=== PATIENT | male | born 1970 | race Caucasian/White ===

== ENCOUNTER 2017-12-20 19:44 | Emergency (ER) | payer OTHER ==
[2017-12-20] MEDS ORDERED: Diphtheria,Pertussis(Acell),Tetanus Vaccine 0.5 ML SDV IM ONE (20:19)
--- NOTE | 2017-12-20 20:39 | EDM.PDOC ---
<Tania Fox M - Last Filed: 12/20/17 20:39> ED HPI GENERAL MEDICAL PROBLEM - General Chief Complaint: Laceration Stated Complaint: CUT POINTER FINGER ON RIGHT HAND Time Seen by Provider: 12/20/17 20:00 Source of Information: Reports: Patient - History of Present Illness INITIAL COMMENTS - FREE TEXT/NARRATIVE: Patient arrives at the ED today with complaint of right index finger laceration. Laceration is approximately 1.5 cm in length and is located along the radial aspect of the middle phalanx. Injury occurred 30 minutes prior to arrival while he was working with a utility knife. The patient is left handed. Patient does not recall when his tetanus vaccination was last updated. Onset: Today Onset Date: 12/20/17 Onset Time: 18:30 Location: Reports: Upper Extremity, Right (index finger, over radial side of middle phalanx) Quality: Reports: Sharp Severity: Moderate Associated Symptoms: Reports: No Other Symptoms - Related Data Allergies Allergy/AdvReac Type Severity Reaction Status Date / Time No Known Allergies Allergy Verified 12/20/17 19:59 Past Medical History Cardiovascular History: Reports: Hypertension Social & Family History - Tobacco Use Smoking Status *Q: Never Smoker - Caffeine Use Caffeine Use: Reports: Soda ED ROS GENERAL - Review of Systems Review Of Systems: See Below Constitutional: Reports: No Symptoms Respiratory: Reports: No Symptoms Cardiovascular: Reports: No Symptoms Skin: Reports: Other (right index finger laceration) ED EXAM, SKIN/RASH Exam: See Below Exam Limited By: No Limitations General Appearance: Alert, WD/WN, No Apparent Distress Respiratory/Chest: No Respiratory Distress Cardiovascular: Normal Peripheral Pulses Extremities: Normal Range of Motion, Other (Right index finger approximately 1.5 cm laceration over the radial aspect of the middle phalanx. Laceration is at sharp angle, approxiately at a 30 degree angle to the side finger. Laceration does not appear to be more than 1-2 mm in depth Motor and sensory innervation intact. Patient is able to flex/ext/abd/adduct against resistance. No tendinous injury is appreciated. No errythema surrounding the injury. No purulent drainage from the incision. No streaking.) Course - Vital Signs Last Recorded V/S: Last Vital Signs Temp 97.1 F 12/20/17 19:57 Pulse 73 12/20/17 19:57 Resp 16 12/20/17 19:57 BP 132/99 H 12/20/17 19:57 Pulse Ox 100 12/20/17 19:57 - Orders/Labs/Meds Orders: Active Orders 24 hr Category Date Time Status Vaccines to be Administered [RC] PER UNIT ROUTINE Care 12/20/17 20:19 Active Meds: Medications Discontinued Medications Generic Name Dose Route Start Last Admin Trade Name Satish PRN Reason Stop Dose Admin Diphtheria/Tetanus/Acell Pertussis 0.5 ml 12/20/17 20:19 12/20/17 20:32 Adacel IM 12/20/17 20:20 0.5 ml .ONCE ONE Administration Departure - Departure Time of Disposition: 20:29 Disposition: Home, Self-Care 01 Condition: Good Clinical Impression: Laceration - Discharge Information *PRESCRIPTION DRUG MONITORING PROGRAM REVIEWED*: Not Applicable *COPY OF PRESCRIPTION DRUG MONITORING REPORT IN PATIENT MIREILLE: Not Applicable Instructions: Laceration Care, Adult, [id number], Stitches, [place], or Adhesive Wound Closure, [id number] Referrals: Gary Quintanilla MD [Primary Care Provider] - Forms: ED Department Discharge Additional Instructions: The adhesive glue applied to the laceration on your right index finger will protect the laceration. However, do not submerge the injury in dirty water. It is fine to wash the finger under running water or in the shower. Do not peel the glue off of the laceration for at least one week. After one week, the glue typically begins to peel along the edges. Do not apply antibiotic ointment over the top of the glue as this will cause it to break down prematurely. Please put a bandage over the injury if you are planning on working in the dirt or putting your hands in work gloves. Please seek medical care if you notice any signs of infection such as, fever, increasing redness, heat, swelling, or cloudy drainage from the injury. Please return to the ER if your symptoms change or worsen. - My Orders Last 24 Hours: My Active Orders 12/20/17 20:19 Vaccines to be Administered [RC] PER UNIT ROUTINE - Assessment/Plan Last 24 Hours: My Active Orders 12/20/17 20:19 Vaccines to be Administered [RC] PER UNIT ROUTINE <Johnna Lagos - Last Filed: 12/20/17 23:11> ED HPI GENERAL MEDICAL PROBLEM - General Source of Information: Reports: Patient History Limitations: Reports: No Limitations - History of Present Illness INITIAL COMMENTS - FREE TEXT/NARRATIVE: I have seen the patient and agree with the HPI as documented by JAJA Fajardo. Patient is left handed. ED ROS GENERAL - Review of Systems Musculoskeletal: Reports: Other (no decreased ROM ) Neurological: Denies: Numbness, Tingling ED EXAM, SKIN/RASH Peripheral Pulses: 2+: Radial (R) Extremities: Normal Capillary Refill, Other Neurological: Alert, Oriented, Normal Cognition Psychiatric: Normal Affect, Normal Mood Skin: Warm, Dry, Wound/Incision Location, Skin: Upper Extremity, Right Characteristics: Linear ED SKIN PROCEDURES - Laceration/Wound Repair Right Digit - 2nd (Index) Lac/Wound length In cm: 1.5 Appearance: Subcutaneous, Linear Distal NVT: Neuro & Vascular Intact, No Tendon Injury Skin Prep: Chlorhexidine (Hibiciens), Saline Closed with: Dermabond Tetanus Status Addressed: Yes Complications: No Course - Re-Assessments/Exams Free Text/Narrative Re-Assessment/Exam: 12/20/17 20:20 I have seen the patient and agree with the HPI, ROS and PE as documented by JAJA Fajardo. Wound closed by Tania with dermabond. Patient tolerated well. No complications. Tetanus up dated Discharge instructions as documented.
== END 2017-12-20 20:50 | disposition home or self-care (01) ==
LOC: JD.ED 19:44
DX: S61.210A Laceration without foreign body of right index finger without damage to nail, initial encounter (principal); I10 Essential (primary) hypertension; W26.0XXA Contact with knife, initial encounter; Z23 Encounter for immunization
CPT/HCPCS: 12001; 90471; 90715; 99283-25

== ENCOUNTER 2020-03-28 12:42 | Emergency (ER) | payer OTHER ==
[2020-03-28] MEDS ORDERED: Sodium Chloride 0.9% 10 ML Syringe FLUSH PRN (13:23)
--- NOTE | 2020-03-28 14:41 | EDM.PDOC ---
ED HPI GENERAL MEDICAL PROBLEM - General Chief Complaint: Cardiovascular Problem Stated Complaint: DIZZY Time Seen by Provider: 03/28/20 12:57 Source of Information: Reports: Patient History Limitations: Reports: No Limitations - History of Present Illness INITIAL COMMENTS - FREE TEXT/NARRATIVE: The patient presents with near syncope. He said he feels lightheaded. This started yesterday and it happened 5 times. Twice today it felt like he was going to pass out and he was driving. He has been having headaches for a few weeks and his blood pressure has been elevated. He also has been dealing with a chronic cough since last May. He was put on claritin and that is better. He has no fever, chills, chest pain, shortness of breath, abdominal pain, nausea or vomiting. He has no numbness or weakness. He has no medical problems. Onset: Gradual Duration: Day(s): Location: Reports: Head Quality: Reports: Ache Severity: Moderate Improves with: Reports: None Worsens with: Reports: None Associated Symptoms: Reports: Headaches. Denies: Chest Pain, Cough, Fever/Chills, Nausea/Vomiting, Shortness of Breath - Related Data Allergies Allergy/AdvReac Type Severity Reaction Status Date / Time No Known Allergies Allergy Verified 12/20/17 19:59 Home Meds: Home Meds . [No Known Home Meds] 03/28/20 [History] Past Medical History - Past Health History Medical/Surgical History: Denies Medical/Surgical History Cardiovascular History: Reports: Hypertension Gastrointestinal History: Reports: GERD Genitourinary History: Reports: Other (See Below) Other Genitourinary History: vasectomy - Infectious Disease History Infectious Disease History: Reports: Novel Coronavirus - Past Surgical History Male Surgical History: Reports: Vasectomy Social & Family History - Tobacco Use Tobacco Use Status *Q: Never Tobacco User Second Hand Smoke Exposure: No - Caffeine Use Caffeine Use: Reports: Soda - Alcohol Use Days Per Week of Alcohol Use: 2 Number of Drinks Per Day: 10 Total Drinks Per Week: 20 - Recreational Drug Use Recreational Drug Use: No ED ROS GENERAL - Review of Systems Review Of Systems: See Below Constitutional: Reports: No Symptoms HEENT: Reports: No Symptoms Respiratory: Reports: No Symptoms Cardiovascular: Reports: Lightheadedness Endocrine: Reports: No Symptoms GI/Abdominal: Reports: No Symptoms : Reports: No Symptoms Musculoskeletal: Reports: No Symptoms ED EXAM, GENERAL - Physical Exam Exam: See Below Exam Limited By: No Limitations General Appearance: Alert, No Apparent Distress Ears: Normal External Exam Nose: Normal Inspection Head: Atraumatic, Normocephalic Neck: Normal Inspection Respiratory/Chest: No Respiratory Distress, Lungs Clear, Normal Breath Sounds Cardiovascular: Regular Rate, Rhythm, No Edema, No Murmur GI/Abdominal: Soft, Non-Tender, No Organomegaly, No Mass Back Exam: Normal Inspection Extremities: Normal Inspection Neurological: Alert, Oriented, No Motor/Sensory Deficits #1 Interpretation EKG Date: 03/28/20 Time: 14:02 Rhythm: NSR Rate (Beats/Min): 70 Forbes: Normal P-Wave: Present QRS: Normal ST-T: Normal QT: Normal Course - Vital Signs Last Recorded V/S: Last Vital Signs Temp 97.4 F 03/28/20 12:53 Pulse 81 03/28/20 12:53 Resp 16 03/28/20 12:53 BP 166/99 H 03/28/20 12:53 Pulse Ox 100 03/28/20 12:53 Orthostatic Blood Pressure [ 159/108 Standing] Orthostatic Blood Pressure [ 162/112 Sitting] Orthostatic Blood Pressure [ 156/108 Supine] - Orders/Labs/Meds Orders: Active Orders 24 hr Category Date Time Status Cardiac Monitoring [RC] . DIRECTED Care 03/28/20 13:23 Active EKG Documentation Completion [RC] STAT Care 03/28/20 13:24 Active Holter Monitor 48 Hours [RC] .PRN Care 03/28/20 14:46 Ordered Peripheral IV Care [RC] . DIRECTED Care 03/28/20 13:24 Active Head wo Cont [CT] Stat Exams 03/28/20 13:24 Taken Sodium Chloride 0.9% [Saline Flush] Med 03/28/20 13:23 Active 10 ml FLUSH ASDIRECTED PRN Peripheral IV Insertion Adult [OM.PC] Stat Oth 03/28/20 13:23 Ordered Medication Orders Sodium Chloride (Saline Flush) 10 ml FLUSH ASDIRECTED PRN PRN Reason: Keep Vein Open Labs: Laboratory Tests 03/28/20 03/28/20 Range/Units 13:56 13:56 WBC 6.07 (4.23-9.07) K/mm3 RBC 5.16 (4.63-6.08) M/mm3 Hgb 15.0 (13.7-17.5) gm/dl Hct 46.2 (40.1-51.0) % MCV 89.5 (79.0-92.2) fl MCH 29.1 (25.7-32.2) pg MCHC 32.5 (32.2-35.5) g/dl RDW Std Deviation 45.1 H (35.1-43.9) fL Plt Count 271 (163-337) K/mm3 MPV 9.7 (9.4-12.3) fl Neut % (Auto) 71.2 H (34.0-67.9) % Lymph % (Auto) 17.1 L (21.8-53.1) % [place] % (Auto) 10.2 (5.3-12.2) % Eos % (Auto) 0.8 (0.8-7.0) Baso % (Auto) 0.5 (0.1-1.2) % Neut # (Auto) 4.32 (1.78-5.38) K/mm3 Lymph # (Auto) 1.04 L (1.32-3.57) K/mm3 [place] # (Auto) 0.62 (0.30-0.82) K/mm3 Eos # (Auto) 0.05 (0.04-0.54) K/mm3 Baso # (Auto) 0.03 (0.01-0.08) K/mm3 Sodium 140 (136-145) mEq/L Potassium 4.2 (3.5-5.1) mEq/L Chloride 103 (98-107) mEq/L Carbon Dioxide 30 (21-32) mEq/L Anion Gap 11.2 (5-15) BUN 18 (7-18) mg/dL Creatinine 1.1 (0.7-1.3) mg/dL Est Cr Clr Drug Dosing 80.34 mL/min Estimated GFR (MDRD) > 60 (>60) mL/min BUN/Creatinine Ratio 16.4 (14-18) Glucose 99 (74-106) mg/dL Calcium 9.1 (8.5-10.1) mg/dL Magnesium 2.1 (1.8-2.4) mg/dl Total Bilirubin 0.5 (0.2-1.0) mg/dL AST 19 (15-37) U/L ALT 34 (16-63) U/L Alkaline Phosphatase 72 (46-116) U/L Troponin I < 0.017 (0.00-0.056) ng/mL Total Protein 7.2 (6.4-8.2) g/dl Albumin 3.8 (3.4-5.0) g/dl Globulin 3.4 gm/dL Albumin/Globulin Ratio 1.1 (1-2) Meds: Medications Generic Name Dose Route Start Last Admin Trade Name Freq PRN Reason Stop Dose Admin Sodium Chloride 10 ml 03/28/20 13:23 Saline Flush FLUSH ASDIRECTED PRN Keep Vein Open - Re-Assessments/Exams Free Text/Narrative Re-Assessment/Exam: 03/28/20 14:41 I ordered an EKG, CT of his head and labs. His EKG shows a NSR with no acute changes. The CT of his head shows no acute intracranial abnormality. Prominent atrophic changes in the frontal and anterior temporal lobes given patient's stated age. 03/28/20 14:47 I will get him on a holter monitor for 48 hours and have him follow up with Dr Kim. Departure - Departure Time of Disposition: 14:50 Disposition: Home, Self-Care 01 Condition: Good Clinical Impression: Near syncope Referrals: Gary Quintanilla MD [Primary Care Provider] - 1 Week Forms: ED Department Discharge Additional Instructions: Wear the holter monitor for 48 hours. Drink plenty of fluids. Follow up with Dr Kim within a week. Please return if you are worse. Sepsis Event Note (ED) - Evaluation Sepsis Screening Result: No Definite Risk - Focused Exam Vital Signs: Vital Signs Temp Pulse Resp BP Pulse Ox 03/28/20 12:53 97.4 F 81 16 166/99 H 100 - My Orders Last 24 Hours: My Active Orders 03/28/20 13:23 Cardiac Monitoring [RC] . DIRECTED Sodium Chloride 0.9% [Saline Flush] 10 ml FLUSH ASDIRECTED PRN Peripheral IV Insertion Adult [OM.PC] Stat 03/28/20 13:24 EKG Documentation Completion [RC] STAT Peripheral IV Care [RC] . DIRECTED Head wo Cont [CT] Stat 03/28/20 14:46 Holter Monitor 48 Hours [RC] .PRN - Assessment/Plan Last 24 Hours: My Active Orders 03/28/20 13:23 Cardiac Monitoring [RC] . DIRECTED Sodium Chloride 0.9% [Saline Flush] 10 ml FLUSH ASDIRECTED PRN Peripheral IV Insertion Adult [OM.PC] Stat 03/28/20 13:24 EKG Documentation Completion [RC] STAT Peripheral IV Care [RC] . DIRECTED Head wo Cont [CT] Stat 03/28/20 14:46 Holter Monitor 48 Hours [RC] .PRN
== END 2020-03-28 15:30 | disposition home or self-care (01) ==
LOC: JD.ED 12:42
DX: R55 Syncope and collapse (principal); I10 Essential (primary) hypertension
CPT/HCPCS: 36415; 70450; 80053; 83735; 84484; 85025; 93005; 93010; 93225; 93226; 99283; 99284-25

== ENCOUNTER 2020-08-20 11:42 | Emergency (ER) | payer OTHER ==
--- NOTE | 2020-08-20 12:19 | EDM.PDOC ---
ED HPI GENERAL MEDICAL PROBLEM - General Chief Complaint: Syncope Stated Complaint: DIZZY Time Seen by Provider: 08/20/20 12:04 Source of Information: Reports: Patient, Family (), Old Records, RN Notes Reviewed (Vital signs: Pulse 76 bpm, temperature is 96.9 F, respiratory rate 18 breaths/min, blood pressure 136/96, O2 sats 92% on room air) History Limitations: Reports: No Limitations - History of Present Illness INITIAL COMMENTS - FREE TEXT/NARRATIVE: Patient is a 49-year-old male who presents to the ED for sudden onset dizziness. Patient notes that he had his first episode this morning at around 7:30 AM, and this only lasted about 30 seconds. Patient went about his day and felt fine until roughly 11:15 AM, when he began to have world spinning dizziness, associa sabina nausea and vomiting with this. Patient notes that he feels dizzy even at rest, but it does seem to worsen when he changes positions at all. He said no fevers or chills, shortness of breath with this. notes that he does have a chronic cough that has been working with pulmonology for that is thought to be asthma, has been working on blood pressure issues Dr. Kim. She brings an tracy that shows his last 5-day blood pressure readings, and these have all been in the 120s systolically. Patient denies any sort of chest pains or palpitation type sensations in his chest when these issues hit. He notes that it really just seems to be the dizziness. - Related Data Allergies Allergy/AdvReac Type Severity Reaction Status Date / Time No Known Allergies Allergy Verified 12/20/17 19:59 Home Meds: Home Meds Budesonide/Formoterol Fumarate [Symbicort 160-4.5 Mcg Inhaler] 2 puff INH BID 08/20/20 [History] LORazepam [Ativan] 1 mg PO TID PRN #12 tab 08/20/20 [Rx] Losartan [Cozaar] 25 mg PO BID 08/20/20 [History] Metoclopramide [Reglan] 5 mg PO TID PRN #21 tab 08/20/20 [Rx] predniSONE 20 mg PO ASDIRECTED #15 tab 08/20/20 [Rx] Past Medical History - Past Health History Medical/Surgical History: Denies Medical/Surgical History Cardiovascular History: Reports: Hypertension Gastrointestinal History: Reports: GERD Genitourinary History: Reports: Other (See Below) Other Genitourinary History: vasectomy - Infectious Disease History Infectious Disease History: Reports: Novel Coronavirus - Past Surgical History Male Surgical History: Reports: Vasectomy Social & Family History - Caffeine Use Caffeine Use: Reports: Soda ED ROS GENERAL - Review of Systems Review Of Systems: Comprehensive ROS is negative, except as noted in HPI. ED EXAM, DIZZINESS - Physical Exam Exam: See Below Exam Limited By: No Limitations General Appearance: Alert, WD/WN, No Apparent Distress Eye Exam: Bilateral Eye: EOMI, Nystagmus (several tics of nystagmus in all EOM; does not seem to worsen the dizziness sensations) Nystagmus: reproducible, constant, short duration Ears: Normal External Exam, Normal Canal, Hearing Grossly Normal, Normal TMs Throat/Mouth: Normal Inspection, Normal Lips, Normal Teeth, Normal Gums, Normal Oropharynx, Normal Voice, No Airway Compromise Head Exam: Atraumatic, Normocephalic Vertigo: constant Neck: Normal Inspection, Supple, Non-Tender, Full Range of Motion Respiratory/Chest: No Respiratory Distress, Lungs Clear, Normal Breath Sounds, No Accessory Muscle Use, Chest Non-Tender Cardiovascular: Normal Peripheral Pulses, Regular Rate, Rhythm, No Edema GI/Abdominal: Normal Bowel Sounds, Soft, Non-Tender, No Distention, No Mass Neurological: Alert, Normal Mood/Affect, Normal Dorsiflexion, Normal Plantar Flexion, No Motor/Sensory Deficits, Oriented x 3 Extremities: Normal Inspection, Normal Capillary Refill Psychiatric: Normal Affect, Normal Mood Skin Exam: Warm, Dry, Intact, Normal Color, No Rash Course - Vital Signs Last Recorded V/S: Last Vital Signs Temp 96.9 F 08/20/20 11:57 Pulse 76 08/20/20 11:57 Resp 18 08/20/20 11:57 BP 136/96 H 08/20/20 11:57 Pulse Ox 92 L 08/20/20 11:57 - Orders/Labs/Meds Orders: Active Orders 24 hr Category Date Time Status Peripheral IV Care [RC] . DIRECTED Care 08/20/20 12:16 Ordered Sodium Chloride 0.9% [Saline Flush] Med 08/20/20 12:16 Active 10 ml FLUSH ASDIRECTED PRN Peripheral IV Insertion Adult [OM.PC] Routine Oth 08/20/20 12:16 Ordered Medication Orders Sodium Chloride (Sodium Chloride 0.9% 10 Ml Syringe) 10 ml FLUSH ASDIRECTED PRN PRN Reason: Keep Vein Open Last Admin: 08/20/20 12:29 Dose: 10 ml Documented by: HERMMIC Labs: Laboratory Tests 08/20/20 08/20/20 Range/Units 12:27 12:27 WBC 6.43 (4.23-9.07) K/mm3 RBC 4.79 (4.63-6.08) M/mm3 Hgb 14.3 (13.7-17.5) gm/dl Hct 43.0 (40.1-51.0) % MCV 89.8 (79.0-92.2) fl MCH 29.9 (25.7-32.2) pg MCHC 33.3 (32.2-35.5) g/dl RDW Std Deviation 43.2 (35.1-43.9) fL Plt Count 244 (163-337) K/mm3 MPV 9.5 (9.4-12.3) fl Neut % (Auto) 71.1 H (34.0-67.9) % Lymph % (Auto) 17.4 L (21.8-53.1) % [place] % (Auto) 9.8 (5.3-12.2) % Eos % (Auto) 0.9 (0.8-7.0) Baso % (Auto) 0.5 (0.1-1.2) % Neut # (Auto) 4.57 (1.78-5.38) K/mm3 Lymph # (Auto) 1.12 L (1.32-3.57) K/mm3 [place] # (Auto) 0.63 (0.30-0.82) K/mm3 Eos # (Auto) 0.06 (0.04-0.54) K/mm3 Baso # (Auto) 0.03 (0.01-0.08) K/mm3 Sodium 141 (136-145) mEq/L Potassium 4.0 (3.5-5.1) mEq/L Chloride 106 (98-107) mEq/L Carbon Dioxide 25 (21-32) mEq/L Anion Gap 14.0 (5-15) BUN 25 H (7-18) mg/dL Creatinine 1.1 (0.7-1.3) mg/dL Est Cr Clr Drug Dosing 80.34 mL/min Estimated GFR (MDRD) > 60 (>60) mL/min BUN/Creatinine Ratio 22.7 H (14-18) Glucose 121 H (74-106) mg/dL Calcium 8.7 (8.5-10.1) mg/dL Total Bilirubin 0.6 (0.2-1.0) mg/dL AST 24 (15-37) U/L ALT 40 (16-63) U/L Alkaline Phosphatase 59 (46-116) U/L Total Protein 7.3 (6.4-8.2) g/dl Albumin 4.0 (3.4-5.0) g/dl Globulin 3.3 gm/dL Albumin/Globulin Ratio 1.2 (1-2) Meds: Medications Generic Name Dose Route Start Last Admin Trade Name Freq PRN Reason Stop Dose Admin Sodium Chloride 10 ml 08/20/20 12:16 08/20/20 12:29 Sodium Chloride 0.9% 10 Ml Syringe FLUSH 10 ml ASDIRECTED PRN Administration Keep Vein Open Discontinued Medications Generic Name Dose Route Start Last Admin Trade Name Freq PRN Reason Stop Dose Admin Diazepam 5 mg 08/20/20 13:06 08/20/20 13:20 Diazepam 10 Mg/2 Ml Syringe IVPUSH 08/20/20 13:07 5 mg ONETIME ONE Administration Sodium Chloride 1,000 mls @ 999 mls/hr 08/20/20 13:31 08/20/20 13:37 Normal Saline IV 08/20/20 14:31 999 mls/hr ONETIME ONE Administration Meclizine HCl 25 mg 08/20/20 12:17 08/20/20 12:29 Meclizine 25 Mg Tab.Chew PO 08/20/20 12:18 25 mg ONETIME ONE Administration Metoclopramide HCl 7.5 mg 08/20/20 13:10 08/20/20 13:20 Metoclopramide 10 Mg/2 Ml Sdv IVPUSH 08/20/20 13:11 7.5 mg ONETIME ONE Administration Ondansetron HCl 4 mg 08/20/20 12:17 08/20/20 12:29 Ondansetron 4 Mg/2 Ml Sdv IVPUSH 03/16/21 12:18 4 mg ONETIME ONE Administration - Re-Assessments/Exams Free Text/Narrative Re-Assessment/Exam: 08/20/20 12:20 Patient presents to the ED for the evaluation of his dizziness. I do suspect a pretty intense case of vertigo at this time due to his history and physical findings. We will go ahead and repeat a head CT as he had one done 6 months ago, for further investigation, get IV established, given a dose of meclizine and Zofran, and get some basic labs for initial management. I may try to consult PT for dizziness referral if they are available today. 08/20/20 13:[address] has been performed, and demonstrates no acute abnormalities. Dr. Poole did appreciate slight atrophy which is more prominent for patient's age however. Labs are also essentially unremarkable. I did check on the patient again and he states he was not feeling much better from a dizziness standpoint and he notes that he vomited once going to CT we will go ahead and try 5 mg Valium for management and I have contacted physical therapy they will be over at around 2:30 PM for initial evaluation. Departure - Departure Time of Disposition: 15:28 Disposition: Home, Self-Care 01 Condition: Good Clinical Impression: Labyrinthitis Qualifiers: Laterality: unspecified laterality Qualified Code(s): H83.09 - Labyrinthitis, unspecified ear - Discharge Information *PRESCRIPTION DRUG MONITORING PROGRAM REVIEWED*: No *COPY OF PRESCRIPTION DRUG MONITORING REPORT IN PATIENT MIREILLE: No Prescriptions: LORazepam [Ativan] 1 mg PO TID PRN #12 tab PRN Reason: Anxiety predniSONE 20 mg PO ASDIRECTED #15 tab Metoclopramide [Reglan] 5 mg PO TID PRN #21 tab PRN Reason: Nausea Instructions: Labyrinthitis, [id number] Referrals: Gary Quintanilla MD [Primary Care Provider] - Forms: ED Department Discharge Additional Instructions: You were evaluated in the ER today for your dizziness. You had some labs taken, and a head CT and everything was essentially within normal limits. You have been diagnosed with labyrinthitis at this time. Physical therapy was over to evaluate you, and I do state that this is likely what you are suffering from. Management of this is to try to treat the symptoms, and to reduce inflammation, as sometimes can cause labyrinthitis. You were given a prescription for prednisone, you will need to take 1 tab 2 times a day for 5 days, then 1 tab daily for the last 5 days. Reglan for nausea, you may take 1 tablet 3 times a day as needed for nausea. Ativan for sedation, 1 tablet 3 times a day as needed. You may also try [id number] meclizine or Dramamine for treatment of vertigo-like symptoms (i.e world spinning dizziness.) Follow-up with your regular care provider at your next scheduled visit. Please look over the educational materials given to you by physical therapy for the neuritis/labyrinthitis, and try to go to Dr. Singh's office for further diagnosis and management. Try to increase your oral fluid intake over the next few days, you should hopefully be feeling better in the next few days. Please return to the ER at any time if symptoms change or worsen. Sepsis Event Note (ED) - Evaluation Sepsis Screening Result: No Definite Risk - Focused Exam Vital Signs: Vital Signs Temp Pulse Resp BP Pulse Ox 08/20/20 11:57 96.9 F 76 18 136/96 H 92 L - My Orders Last 24 Hours: My Active Orders 08/20/20 12:16 Peripheral IV Care [RC] . DIRECTED Sodium Chloride 0.9% [Saline Flush] 10 ml FLUSH ASDIRECTED PRN Peripheral IV Insertion Adult [OM.PC] Routine - Assessment/Plan Last 24 Hours: My Active Orders 08/20/20 12:16 Peripheral IV Care [RC] . DIRECTED Sodium Chloride 0.9% [Saline Flush] 10 ml FLUSH ASDIRECTED PRN Peripheral IV Insertion Adult [OM.PC] Routine
[2020-08-20] MEDS: Ondansetron 4 MG/2 ML SDV IVPUSH ONE (12:29)
[2020-08-20] MEDS: Sodium Chloride 0.9% 10 ML Syringe FLUSH PRN (12:29)
--- NOTE | 2020-08-20 12:59 | CT ---
Head CT Technique: Multiple axial sections were obtained through the brain. Reconstructed coronal and sagittal images also were obtained. Comparison: No prior intracranial imaging is available. Findings: Ventricles along with basal cisterns and sulci over the convexities are slightly prominent for the patient's age. No abnormal parenchymal densities are seen. No evidence of intracranial hemorrhage. No midline shift or mass-effect is seen. Bone window settings were reviewed. The visualized mastoid sinuses and paranasal sinuses appear without acute abnormality. No acute calvarial finding is seen. Impression: 1. Slight atrophy which is more prominent for the patient's age. 2. Nothing acute is otherwise seen on noncontrast head CT exam. Diagnostic code #2
[2020-08-20] MEDS: Metoclopramide 10 MG/2 ML SDV IVPUSH ONE (13:20)
[2020-08-20] MEDS: Sodium Chloride 0.9% 1,000 ML IV ONE (13:37)
== END 2020-08-20 15:40 | disposition home or self-care (01) ==
LOC: JD.ED 11:42
DX: H83.09 Labyrinthitis, unspecified ear (principal); I10 Essential (primary) hypertension; Z79.899 Other long term (current) drug therapy
CPT/HCPCS: 36415; 70450; 80053; 85025; 96374; 96375; 99284; A9270; J2405; J2765; J3360; J7030; 99283

== ENCOUNTER 2023-06-16 10:18 | Emergency (ER) | payer OTHER ==
[2023-06-16] MEDS ORDERED: Lidocaine 1% 10 ML MDV INJECT ONE (11:17)
== END 2023-06-16 12:20 | disposition home or self-care (01) ==
LOC: JD.ED 10:18
DX: S61.411A Laceration without foreign body of right hand, initial encounter (principal); I10 Essential (primary) hypertension; J45.909 Unspecified asthma, uncomplicated; Z86.16 Personal history of COVID-19; Z79.899 Other long term (current) drug therapy; W26.8XXA Contact with other sharp object(s), not elsewhere classified, initial encounter
CPT/HCPCS: 12001; 99282; 99283